=== PATIENT | female | born 2000 | race Caucasian/White ===

== ENCOUNTER 2021-07-07 14:03 | Emergency (ER) | payer OTHER ==
[~2021-07-07 14:03] MED LIST: NAPROXEN500 MG PO; NORCO 5-325 TA1 EACH PO; SYNTHROID125 MCG PO; ZOLOFT100 MG PO; bcp
[2021-07-07] MEDS ORDERED: MEDROL 4MG DOSEP4 MG PO (15:54)
== END 2021-07-07 16:31 | disposition home or self-care (01) ==
LOC: FER 14:03
DX: S46.912A Strain of unspecified muscle, fascia and tendon at shoulder and upper arm level, left arm, initial encounter (principal); E03.9 Hypothyroidism, unspecified; Z79.890 Hormone replacement therapy; X50.9XXA Other and unspecified overexertion or strenuous movements or postures, initial encounter; Y93.89 Activity, other specified; Y92.830 Public park as the place of occurrence of the external cause
CPT/HCPCS: 73030